=== PATIENT | male | born 1960 | race Caucasian/White ===

== ENCOUNTER 2023-07-05 08:35 | Emergency (ER) | payer MEDICARE, SELFPAY ==
[2023-07-05 08:36] VITALS: BP 145/115
[2023-07-05 08:43] VITALS: BP 145/115; BMI 25.2
--- NOTE | 2023-07-05 08:43 | ED.GENMED ---
History of Present Illness
General
Chief Complaint: Chest Pain
Source: patient
Exam Limitations: none
Time Seen by Provider: 07/05/23 08:42
Travel History
Have you had any contact with someone who has COVID-19?: No
Do you have any symptoms of coronavirus? Fever > 100 degrees, chills, cough, shortness of breath, sore throat, loss of taste or smell, muscle aches, or headache?: No
History of Present Illness
History of Present Illness:
63-year-old male with history of hypertension and family history cardiac disease presents complaining of onset of chest pain at 3 AM this morning. He was laying in bed trying to fall asleep at 3 and developed an ache in the superior aspect of his
chest. There is no radiation to the neck back jaw or arms there is no associated shortness of breath diaphoresis or nausea. No recent travel or surgery. No leg swelling or calf pain. He does note the pain is made slightly worse with motion and
deep breathing. No wheeze fever. He took a full aspirin at home was given a sublingual nitroglycerin tablet by medics en route. He typically would take amlodipine and hydrochlorothiazide for his hypertension. He quit smoking 35 years ago.
Phy Exam
Physical Exam
Physical Exam:
General: Well-appearing male no acute respiratory distress
HEENT: Normocephalic atraumatic
Heart: Regular rate and rhythm no murmurs
Lungs: Clear to auscultation bilaterally no wheezing
Abdomen: Soft nontender nondistended no guarding or rebound normal bowel sounds
Extremities: No cyanosis or edema
Skin: Warm no
Scores
Heart Score for Chest Pain Patients
STEMI patient?: No
History: Slightly or Non-Suspicious
ECG: Normal
Age: >/= 65 years
Risk Factors: 1 or 2 Risk Factors
Troponin: </= Normal Limit
Heart Score for Chest Pain Patients: 3
Heart Score Risk: 2.5% MACE over next 6 weeks
Course
Orders/Labs/Results
Orders:
Orders
07/05/23 08:41
EKG [Electrocardiogram (*1)] Urgent
Reason for Study: Chest Pain
EKG- Treatment ONCE
07/05/23 08:43
Electrocardiogram (*1) Urgent
Reason for Study: Chest Pain
EKG- Treatment ONCE
CR Chest - 2 Views Urgent
Comment:
Reason For Exam: chest pain
07/05/23 08:52
Complete Blood Count/With Diff Urgent
07/05/23 08:53
Comprehensive Metabolic Panel Urgent
Troponin I Urgent
07/05/23 11:14
Troponin I Urgent
Abnormal Lab Results
07/05/23 07/05/23
08:52 08:53
WBC 16.6 H 10^3/uL
(4.8-10.8)
MPV 10.7 H fL
(7.4-10.4)
Abs Immat Gran (auto) 0.1 H 10^3/uL
(0-0.05)
Absolute Neuts (auto) 14.5 H 10^3/uL
(1.4-6.5)
Absolute Lymphs (auto) 1.0 L 10^3/uL
(1.2-3.4)
Absolute Monos (auto) 1.0 H 10^3/uL
(0.1-0.6)
Neutrophils % 87.3 H %
(42.2-75.2)
Lymphocytes % 5.9 L %
(20.5-51.1)
Glucose 149 H mg/dl
(70-99)
ALT 63 H U/L
(0-50)
07/05/23 08:52
07/05/23 08:53
Vital Signs
Initial and Last Documented VS:
Initial Vital Signs
BP
145/115
07/05/23 08:36
Last Documented Vital Signs
Temp Pulse Resp BP Pulse Ox
98.6 F 86 17 145/115 98
07/05/23 08:43 07/05/23 08:45 07/05/23 08:45 07/05/23 08:43 07/05/23 08:45
MDM/Problems Addressed
Differential Diagnosis Includes:
Chest pain. Differential could include musculoskeletal versus anxiety versus ACS. Unlikely to be PE with normal oxygen and heart rate. No PE risk factors. Will check EKG labs and troponin. Chest x-ray pending. Currently pain is minimal at best
*Critical Care Note
Total Time (30-74mins, 75-104mins- exclusive of procedures): Not Applicable
Update Note
Update Note:
Workup included 2 troponins both of which were undetectable. Chest x-ray is clear. Patient's vital signs remained stable. Patient describes pain is worse with motion. Suspect chest wall discomfort. Recommended ibuprofen. Given history of
hypertension and family history of coronary artery disease, did provide chest pain follow-up.
ED Attending Note
-
Portions of this chart may have been created with voice recognition software.� Occasional wrong word or��sound alike� substitutions may have occurred due to the inherent limitations of voice recognition software.
Discharge Plan
Departure
Patient Disposition: Home (Routine Discharge)
Date of Disposition: 07/05/23
Time of Disposition: 13:37
Patient with high blood pressure during this ER visit?: No
Discharge Problem:
Chest pain
Instructions: Chest Pain DCA Follow Up
Referrals:
Richy Aguilera, [Family Provider] -
Activity Restrictions/Additional Instructions:
Use ibuprofen or Tylenol for pain. Rest. Return if worse otherwise follow-up with family doctor and/or cardiology
Interventions
Interventions:
*Risk Screen - Suicide Last Done: 07/05/23 08:47
*General Assessment Last Done: 07/05/23 08:47
*Neglect/Abuse Screening Last Done: 07/05/23 08:47
ED- Fall Risk Assessment Last Done: 07/05/23 08:49
*ED COVID-19 Vaccine History Last Done: 07/05/23 08:43
ED- Cardiac Assessment Last Done: 07/05/23 08:48
[2023-07-05 08:59] LABS: % Basophils 0.2 % (0-2); % Immature Granulocytes 0.4 % (0-0.5); % Lymphocytes 5.9 % (20.5-51.1); % Monocytes 6.2 % (1.7-9.3); % Neutrophils 87.3 % (42.2-75.2); Absolute Immature Granulocytes 0.1 10^3/uL (0-0.05); Absolute Neutrophils 14.5 10^3/uL (1.4-6.5); Hematocrit 41.4 % (39.0-52.0); Hemoglobin 14.6 g/dL (13.0-18.0); Mean Corp Hgb Conc. 35.3 g/dL (33.0-37.0); Mean Corpuscular Hgb 30.9 pg (27.0-31.0); Mean Corpuscular Volume 87.7 fL (80.0-94.0); Mean Platelet Volume 10.7 fL (7.4-10.4); Nucleated Red Blood Cells % 0 % (-); Platelet Count 257 10^3/uL (130-400); Red Blood Cell Count 4.72 10^6/uL (4.70-6.10); Red Cell Dist. Width 12.1 % (11.5-14.5); White Blood Cell Count 16.6 10^3/uL (4.8-10.8)
[2023-07-05 09:00] VITALS: BP 118/73
[2023-07-05 09:14] LABS: ALT (SGPT) 63 U/L (0-50); AST (SGOT) 38 U/L (17-59); Albumin 4.3 g/dl (3.5-5.0); Alkaline Phosphatase 55 U/L (38-126); Blood Urea Nitrogen 15 mg/dl (9-20); Calcium 9.4 mg/dl (8.4-10.2); Carbon Dioxide 27 mmol/L (22-30); Chloride 102 mmol/L (98-107); Estimated Creatinine Clearance 86 ml/min; Glucose 149 mg/dl (70-99); Potassium 3.6 mmol/L (3.5-5.1); Sodium 137 mmol/L (135-145); Total Bilirubin 0.7 mg/dl (0.2-1.3); Total Protein 7.1 g/dl (6.3-8.2); eGFR > 60.00
[2023-07-05 09:24] LABS: Troponin I < 0.012 ng/ml
[2023-07-05 12:32] LABS: Troponin I < 0.012 ng/ml
[2023-07-05 13:52] VITALS: BP 127/79
[2023-07-05 14:16] VITALS: BP 127/79
== END 2023-07-05 14:18 | disposition home or self-care (01) ==
LOC: EMR 08:35
PROVIDERS: Physician Assistant; EMERGENCY PHYSICIAN Emergency Medicine; FAMILY PHYSICIAN Family Medicine
DX: R07.89 Other chest pain (principal); I10 Essential (primary) hypertension; Z82.49 Family history of ischemic heart disease and other diseases of the circulatory system; Z87.891 Personal history of nicotine dependence
CPT/HCPCS: 99283; 71046; 80053; 84484; 85025; 93005